=== PATIENT | female | born 1965 | race African-American/Black ===

== ENCOUNTER 2016-12-31 11:35 | Emergency (ER) | payer OTHER ==
[~2016-12-31] VITALS: Ht 160 cm; Wt 72.6 kg
[~2016-12-31 11:35] MED LIST: MELO15TA13 PO; PLA200 PO
[2016-12-31 11:52] VITALS: BP 162/83; PULSE 104; RESP 20; TEMP 97.7; O2SAT 100
[2016-12-31] MEDS ORDERED: HYDROmorphone 2 MG/ML VIAL IVP ONE (12:30)
[2016-12-31] MEDS ORDERED: ONDANSETRON 4 MG ODT TAB PO ONE (12:30)
[2016-12-31 13:20] LABS: HEMATOCRIT 28.7 % (36-48); MEAN CORPUSCULAR HEMOGLOBIN 29 pg (27-31); MEAN CORPUSCULAR HGB CONC 35 % (32-36); MEAN CORPUSCULAR VOLUME 84 fL (79.0-98.0); PLATELET COUNT (AUTO) 341 K/uL (130-430); RED CELL DISTRIBUTION WIDTH 12.7 % (9.0-15.0)
[2016-12-31 13:26] LABS: CALCIUM 9.8 mg/dL (8.4-11.0); CREATININE 0.77 mg/dL (0.55-1.30); POTASSIUM 3.6 mmol/L (3.5-5.1)
[2016-12-31 13:31] LABS: ALBUMIN 3.1 g/dL (3.4-4.8); TOTAL BILIRUBIN 0.4 mg/dL (0.0-1.0); TOTAL PROTEIN, SERUM 8.1 g/dL (6.4-8.3)
[2016-12-31 13:38] LABS: BASOPHILS % (MANUAL) 0 % (0-2); EOSINOPHILS % (MANUAL) 2 % (0-7); LYMPHOCYTES % (MANUAL) 18 % (20-46); MONOCYTES % (MANUAL) 12 % (0-11)
[2016-12-31] MEDS ORDERED: PROCHLORPERAZINE EDISYLATE 10 MG/2 ML VIAL IVP ONE (14:00)
[2016-12-31] MEDS ORDERED: ONDANSETRON HCL 4 MG/2 ML VIAL IVP ONE (14:00)
[2016-12-31] MEDS ORDERED: DEXAMETHASONE SOD PHOSPHATE 10 MG/ML VIAL IVP ONE (14:00)
[2016-12-31] MEDS ORDERED: ONDANSETRON HCL 4 MG/2 ML VIAL ONE (14:03)
[2016-12-31] MEDS ORDERED: KETOROLAC TROMETHAMINE 30 MG VIAL IVP ONE (15:15)
[2016-12-31] MEDS ORDERED: HYDROmorphone 1 MG INJ. 1 MG/ML AMPUL IVP ONE (15:15)
[2016-12-31 15:53] VITALS: BP 123/76; PULSE 83; RESP 16; TEMP 98.1; O2SAT 97
== END 2016-12-31 15:53 | disposition left against medical advice (07) ==
LOC: SED 11:35
DX: M54.5 Low back pain (principal); Z88.5 Allergy status to narcotic agent; Z53.20 Procedure and treatment not carried out because of patient's decision for unspecified reasons
CPT/HCPCS: 36415; 72131; 80053; 83605; 85007; 85027; 87040; 96374; 96375; 96376; 99285; J0780; J1100; J1170 ×2; J1885; J2405; Q0162

== ENCOUNTER 2018-04-23 08:13 | Outpatient (CLI) | payer OTHER | END 2018-04-23 20:10 | disposition home or self-care (01) | LOC: SMA 08:13 | PROVIDERS: ATTEND Family Medicine | DX: R92.8 Other abnormal and inconclusive findings on diagnostic imaging of breast (principal) | CPT/HCPCS: 76642; 77066 ==

== ENCOUNTER 2019-05-09 22:52 | Emergency (ER) | payer OTHER ==
[~2019-05-09] VITALS: Ht 160 cm; Wt 72.6 kg
[~2019-05-09 22:52] MED LIST changes: +HYDR200T80 PO; -PLA200 PO
[2019-05-09 23:06] VITALS: BP_SYST 162
[2019-05-10] MEDS ORDERED: MORPHINE 4 MG/ML INJ. SYRINGE IVP ONE (01:30)
[2019-05-10] MEDS ORDERED: NAPR1TAB25 PO (01:46)
[2019-05-10] MEDS ORDERED: BACL10TA PO (01:46)
[2019-05-10] MEDS ORDERED: ESZO3TAB27 PO (01:46)
[2019-05-10] MEDS ORDERED: HYDR200T80 PO (01:46)
[2019-05-10 01:52] LABS: BASOPHILS % (AUTO) 0.6 % (0.0-2.0); EOSINOPHILS # (AUTO) 0.2 K/uL (0.0-0.4); EOSINOPHILS % (AUTO) 3.1 % (0.0-4.0); HEMATOCRIT 37.5 % (36-48); HEMOGLOBIN 12.4 g/dL (12.0-16.0); LYMPHOCYTES # (AUTO) 1.8 K/uL (1.0-5.5); LYMPHOCYTES % (AUTO) 34.1 % (20.5-51.5); MEAN CORPUSCULAR HEMOGLOBIN 29 pg (27-31); MEAN CORPUSCULAR HGB CONC 33 % (32-36); MEAN CORPUSCULAR VOLUME 86 fL (79.0-98.0); MONOCYTES # (AUTO) 0.6 K/uL (0.0-1.0); MONOCYTES % (AUTO) 11.9 % (1.7-9.3); NEUTROPHILS # (AUTO) 2.7 K/uL (1.8-7.7); NEUTROPHILS % (AUTO) 50.3 % (40.0-70.0); PLATELET COUNT (AUTO) 263 K/uL (130-430); RED BLOOD CELL COUNT(AUTO) 4.35 MIL/uL (4.2-6.2); RED CELL DISTRIBUTION WIDTH 14.1 % (9.0-15.0); WHITE BLOOD COUNT (AUTO) 5.3 K/uL (4.8-10.8)
[2019-05-10 02:01] LABS: CALCIUM 9.7 mg/dL (8.4-11.0); CREATININE 0.67 mg/dL (0.55-1.30); POTASSIUM 3.7 mmol/L (3.5-5.1)
[2019-05-10 02:05] LABS: ALBUMIN 3.7 g/dL (3.4-4.8); TOTAL BILIRUBIN 0.3 mg/dL (0.0-1.0)
[2019-05-10 02:44] LABS: ERYTHROCYTE SEDIMENTATION RATE 13 MM/HR (0-20)
[2019-05-10] MEDS ORDERED: METHOCARBAMOL 500 MG TABLET PO ONE (04:00)
[2019-05-10 06:41] VITALS: BP_SYST 148
== END 2019-05-10 06:41 | disposition home or self-care (01) ==
LOC: SED 22:52
DX: M32.9 Systemic lupus erythematosus, unspecified (principal); Z88.5 Allergy status to narcotic agent; Z79.899 Other long term (current) drug therapy
CPT/HCPCS: 36415; 80053; 85025; 85651; 96374; 99283; J2270

== ENCOUNTER 2023-06-01 17:41 | Emergency (ER) | payer OTHER ==
[~2023-06-01] VITALS: Ht 160 cm; Wt 71.2 kg
[~2023-06-01 17:41] MED LIST changes: +BACL10TA PO; +ESZO3TAB27 PO; -MELO15TA13 PO; +NAPR1TAB25 PO
--- NOTE | 2023-06-01 17:45 | NUR ---
Patient to ER bed 08 to gown for evaluation. Side rails up.
[2023-06-01 17:49] VITALS: BP_SYST 110
[2023-06-01] MEDS ORDERED: KETOROLAC TROMETHAMINE 60 MG/2 ML VIAL IM ONE (18:00)
[2023-06-01] MEDS ORDERED: DIAZEPAM 5 MG TABLET (VALIUM) PO ONE (18:00)
--- NOTE | 2023-06-01 18:00 | NUR ---
Patient BIB self from home. Chief Complaint: right hip pain s/p mechanical fall while cleaning garage x3d ago. Patient a&ox4 and stable. Patient is placed on the monitor and bed rails up. Patient's son is at bedside. Patient states allergy to codeine.
--- NOTE | 2023-06-01 18:01 | NUR ---
Patient verified name and , stated has had toradol and valium in the past with no issues with taking them previously. Patient agreed to medication prior to administration. Patient tolerated well.
--- NOTE | 2023-06-01 18:05 | NUR ---
ER at bedside examining patient.
[2023-06-01] MEDS ORDERED: BACL20TA PO (19:11)
[2023-06-01] MEDS ORDERED: DICL20GE TP (19:11)
[2023-06-01] MEDS ORDERED: DICL75TA5 PO (19:11)
--- NOTE | 2023-06-01 19:14 | NUR ---
Report given to JOSLYN Cheung
[2023-06-01 19:25] VITALS: BP_SYST 110
--- NOTE | 2023-06-01 19:27 | NUR ---
Patient given written and verbal discharge instructions and verbalizes understanding. ER MD discussed with patient the results and treatment provided. Patient in stable condition. ID arm band removed. Rx of BACLOFEN, VOLTAREN given. Patient educated on CONTUSION and to follow up with PMD. Pain Scale . Opportunity for questions provided and answered. Medication side effect fact sheet provided.
== END 2023-06-01 19:27 | disposition home or self-care (01) ==
LOC: SED 17:41
DX: S70.01XA Contusion of right hip, initial encounter (principal); M16.11 Unilateral primary osteoarthritis, right hip; Z88.5 Allergy status to narcotic agent; Z79.899 Other long term (current) drug therapy; W19.XXXA Unspecified fall, initial encounter; Y93.89 Activity, other specified; Y92.89 Other specified places as the place of occurrence of the external cause; Y99.8 Other external cause status
CPT/HCPCS: 99284; 73502; 96372; 72170; J1885

== ENCOUNTER 2023-10-31 13:00 | Emergency (ER) | payer OTHER ==
[~2023-10-31] VITALS: Ht 160 cm; Wt 72.6 kg
[~2023-10-31 13:00] MED LIST changes: +BACL20TA PO; +DICL20GE TP; +DICL75TA5 PO
[2023-10-31 13:09] VITALS: BP_SYST 132; PULSE 86; RESP 18; TEMP 98.3; O2SAT 98
[2023-10-31] MEDS ORDERED: CYCLOBENZAPRINE HCL 10 MG TABLET (FLEXERIL) PO ONE (15:15)
[2023-10-31] MEDS ORDERED: KETOROLAC TROMETHAMINE 30 MG VIAL IVP ONE (15:15)
[2023-10-31 15:50] LABS: BASOPHILS % (AUTO) 0.5 % (0.0-2.0); HEMATOCRIT 41.2 % (36-48); HEMOGLOBIN 13.5 g/dL (12.0-16.0); LYMPHOCYTES # (AUTO) 1.1 K/uL (1.0-5.5); LYMPHOCYTES % (AUTO) 24.8 % (20.5-51.5); MEAN CORPUSCULAR HEMOGLOBIN 32 pg (27-31); MEAN CORPUSCULAR HGB CONC 33 % (32-36); MEAN CORPUSCULAR VOLUME 96 fL (79.0-98.0); MONOCYTES # (AUTO) 0.7 K/uL (0.0-1.0); MONOCYTES % (AUTO) 15.3 % (1.7-9.3); NEUTROPHILS # (AUTO) 2.7 K/uL (1.8-7.7); NEUTROPHILS % (AUTO) 58.4 % (40.0-70.0); PLATELET COUNT (AUTO) 274 K/uL (130-430); RED BLOOD CELL COUNT(AUTO) 4.29 MIL/uL (4.2-6.2); RED CELL DISTRIBUTION WIDTH 15.6 % (9.0-15.0); WHITE BLOOD COUNT (AUTO) 4.6 K/uL (4.8-10.8)
[2023-10-31 16:12] LABS: CALCIUM 10.5 mg/dL (8.4-11.0); CREATININE 0.83 mg/dL (0.55-1.30); POTASSIUM 3.9 mmol/L (3.5-5.1)
[2023-10-31 16:32] LABS: BILIRUBIN,URINE NEGATIVE (NEGATIVE); BLOOD, URINE NEGATIVE (NEGATIVE); GLUCOSE,URINE NEGATIVE (NEGATIVE); KETONES,URINE NEGATIVE (NEGATIVE); LEUKOCYTE ESTERASE ,URINE NEGATIVE (NEGATIVE); NITRITE, URINE NEGATIVE (NEGATIVE); PH,URINE 6.5 (5.0-8.0); PROTEIN URINE NEGATIVE (NEGATIVE); UROBILINOGEN,URINE 0.2 (0.2-1.0)
[2023-10-31 16:34] LABS: COLOR,URINE YELLOW (YELLOW)
[2023-10-31 16:35] LABS: CLARITY/URINE HAZY (CLEAR)
[2023-10-31] MEDS ORDERED: ACETAMINOPHEN 500 MG TABLET PO ONE (16:45)
[2023-10-31] MEDS ORDERED: CYCL10TA24 PO (16:58)
[2023-10-31 17:05] LABS: BACTERIA,URINE MODERATE /HPF (None Seen); RBC,URINE NONE SEEN /HPF (0-3); WBC,URINE 0-3 /HPF (0-3)
[2023-10-31 17:06] VITALS: BP_SYST 139; PULSE 78; RESP 17; TEMP 98.4; O2SAT 100
[2023-10-31 17:06] LABS: MUCUS,URINE None Seen /LPF (None Seen)
== END 2023-10-31 17:05 | disposition home or self-care (01) ==
LOC: SED 13:00
DX: M54.42 Lumbago with sciatica, left side (principal); Z88.5 Allergy status to narcotic agent; Z79.899 Other long term (current) drug therapy
CPT/HCPCS: 99284; 96374; 80048; 81001; 83690; 85025; 87086; 36415; 72110; J1885; 81000; 81015